=== PATIENT | female | born 1975 | race Two or more races ===

== ENCOUNTER 2022-12-09 15:16 | Inpatient (IN) | payer MEDICAID ==
[~2022-12-09] VITALS: Ht 170.2 cm; Wt 88.9 kg
[2022-12-09] MEDS ORDERED: LORazepam 2MG/ML-1ML VIAL IV ONE (15:30)
[2022-12-09] MEDS ORDERED: SODIUM CHLORIDE 0.9% 500 ML IV ONE (15:30)
[2022-12-09 15:54] LABS: Basophils # (auto) 0.1 10 ^3/uL (0-0.2); Basophils % (auto) 1.1 % (0.0-2.0); Eosinophils # (auto) 0.3 10 ^3/uL (0-0.8); Eosinophils % (auto) 5.6 % (0.0-7.0); Hematocrit 38.1 % (36.0-46.0); Hemoglobin 12.2 g/dL (12.2-16.2); Lymphocytes # (auto) 1.8 10 ^3/uL (0.4-5.4); Lymphocytes % (auto) 29.4 % (10.0-50.0); Mean Corpuscular Hemoglobin 27.2 pg (28.0-32.0); Mean Corpuscular Volume 84.9 fL (80.0-100.0); Monocytes # (auto) 0.4 10 ^3/uL (0-1.3); Monocytes % (auto) 7.2 % (0.0-12.0); Neutrophils # (auto) 3.5 10 ^3/uL (1.6-8.6); Neutrophils % (auto) 56.7 % (37.0-80.0); Nucleated Red Blood Cells % 0.1 %; Red Blood Cells 4.49 10^6/uL (4.0-5.20); Red Cell Distribution Width 13.8 % (11.8-14.3); White Blood Cell 6.1 10^3/uL (4.4-10.8)
[2022-12-09 16:12] LABS: Alanine Aminotransferase 16 U/L (7-40); Albumin 4.3 g/dL (3.2-4.8); Alkaline Phosphatase 120 U/L (46-116); Anion Gap 7 (5-15); Aspartate Aminotransferase 11 U/L (13-40); BUN/Creatinine Ratio 8.2 (10.0-20.0); Bilirubin, Total 0.5 mg/dL (0.2-1.0); Blood Urea Nitrogen 7 mg/dL (9-23); Calcium 9.4 mg/dL (8.7-10.4); Carbon Dioxide 25 mmol/L (20-30); Chloride 106 mmol/L (98-107); Glucose 95 mg/dL (74-106); Magnesium 1.5 mg/dL (1.6-2.6); Potassium 3.7 mmol/L (3.5-5.1); Sodium 138 mmol/L (136-145); Total Protein 8.3 g/dL (5.7-8.2)
[2022-12-09 16:54] LABS: Partial Thromboplastin Time 23.6 SEC (24.5-34.5); Prothrombin Time 10.5 sec (9.3-11.8)
[2022-12-09] MEDS ORDERED: IOHEXOL 350 MG/ML 100ML IJ ONE (18:53)
[2022-12-09] MEDS ORDERED: hydrALAZINE HCL 20 MG/ML VL IV ONE (19:00)
[2022-12-09] MEDS ORDERED: ONDANSETRON HCL 4 MG/2 ML VIAL IV ONE (20:00)
[2022-12-09] MEDS ORDERED: MORPHINE SULFATE 4 MG/ML SYR/VIAL IV ONE (20:00)
[2022-12-09 20:56] LABS: Urine Bacteria FEW /hpf (None Seen); Urine Blood Negative /uL (Negative); Urine Clarity Clear (Clear); Urine Color Colorless (Yellow); Urine Hyaline Cast FEW /lpf (0 - 2); Urine Protein, UAD Negative (Negative); Urine Specific Gravity 1.003 (1.001-1.035); Urine Urobilinogen Normal (Negative); Urine WBC 1 /hpf (0 - 5); Urine pH 6.5 (5.0-8.0)
[2022-12-09] MEDS ORDERED: MORPHINE SULFATE INJ 2 MG/ml SYRG IV PRN (21:30)
[2022-12-09] MEDS ORDERED: NITROGLYCERIN 0.4 MG SL TAB SL PRN (21:30)
[2022-12-09] MEDS ORDERED: ONDANSETRON HCL 4 MG/2 ML VIAL IV PRN (21:30)
[2022-12-09] MEDS: ATORVASTATIN 20 MG TAB PO SCH (22:03)
[2022-12-09] MEDS: ACETAMINOPHEN 325 MG TAB PO PRN (22:10)
[2022-12-10] MEDS: ACETAMINOPHEN 325 MG TAB PO PRN ×2 (06:10→14:20)
[2022-12-10 06:20] LABS: Basophils # (auto) 0 10 ^3/uL (0-0.2); Basophils % (auto) 0.8 % (0.0-2.0); Eosinophils # (auto) 0.3 10 ^3/uL (0-0.8); Eosinophils % (auto) 4.9 % (0.0-7.0); Hematocrit 36.7 % (36.0-46.0); Hemoglobin 11.8 g/dL (12.2-16.2); Lymphocytes # (auto) 1.5 10 ^3/uL (0.4-5.4); Lymphocytes % (auto) 25.7 % (10.0-50.0); Mean Corpuscular Hemoglobin 27.3 pg (28.0-32.0); Mean Corpuscular Hgb Conc. 32.3 g/dL (32.0-36.0); Mean Corpuscular Volume 84.7 fL (80.0-100.0); Monocytes # (auto) 0.5 10 ^3/uL (0-1.3); Monocytes % (auto) 9.4 % (0.0-12.0); Neutrophils # (auto) 3.4 10 ^3/uL (1.6-8.6); Neutrophils % (auto) 59.2 % (37.0-80.0); Nucleated Red Blood Cells % 0.1 %; Red Blood Cells 4.33 10^6/uL (4.0-5.20); Red Cell Distribution Width 13.8 % (11.8-14.3); White Blood Cell 5.7 10^3/uL (4.4-10.8)
[2022-12-10] MEDS ORDERED: SUMAtriptan SUCCINATE 25 MG TAB PO ONE (06:30)
[2022-12-10 06:32] LABS: Anion Gap 7 (5-15); Carbon Dioxide 26 mmol/L (20-30); Chloride 107 mmol/L (98-107); Potassium 4.1 mmol/L (3.5-5.1); Sodium 140 mmol/L (136-145)
[2022-12-10 06:33] LABS: Calcium 9.3 mg/dL (8.7-10.4)
[2022-12-10 06:38] LABS: Glucose 91 mg/dL (74-106)
[2022-12-10 06:39] LABS: BUN/Creatinine Ratio 10.7 (10.0-20.0); Blood Urea Nitrogen 9 mg/dL (9-23)
[2022-12-10] MEDS ORDERED: IOHEXOL 300 MG/ML 100ML BOTTLE IJ ONE (07:09)
[2022-12-10 07:39] VITALS: PULSE 84; RESP 20; O2SAT 95
[2022-12-10] MEDS: ASPirin 81 mg TAB PO SCH (09:10)
[2022-12-10] MEDS: PANTOPRAZOLE 40 MG TAB PO SCH (09:10)
[2022-12-10] MEDS: METOPROLOL SUCCINATE XL 50 MG TAB PO SCH (09:12)
[2022-12-10] MEDS: LISINOPRIL 20 MG TAB PO SCH (09:12)
[2022-12-10 13:25] VITALS: PULSE 84; RESP 18
[2022-12-10 15:55] LABS: Hepatitis B Surface Antigen Negative (Negative)
[2022-12-10 16:00] VITALS: BP 140/95; PULSE 77; RESP 20; TEMP 97.9; O2SAT 98
[2022-12-10 16:17] LABS: Hepatitis C Antibody Negative (Negative)
[2022-12-10 20:00] VITALS: PULSE 84; RESP 18
[2022-12-10] MEDS ORDERED: MELO7.5T7 PO (20:26)
[2022-12-10] MEDS ORDERED: BACL10TA PO (20:26)
[2022-12-10] MEDS ORDERED: METO25TA93 PO (20:26)
[2022-12-10] MEDS ORDERED: PERCOT PO (20:26)
[2022-12-10] MEDS: OXYCODONE W/ ACETAMINOPHEN 5/325MG TABLET PO PRN (20:47)
[2022-12-10] MEDS ORDERED: TEMAZEPAM 15 MG CAP PO ONE (21:45)
[2022-12-10 22:00] VITALS: BP 155/107; PULSE 65; RESP 15; TEMP 97.9
[2022-12-10] MEDS: ATORVASTATIN 20 MG TAB PO SCH (22:16)
[2022-12-11] MEDS: ACETAMINOPHEN 325 MG TAB PO PRN ×2 (02:13→09:02)
[2022-12-11 05:00] VITALS: BP 114/66; PULSE 79; RESP 16; TEMP 98.1; O2SAT 99
[2022-12-11] MEDS: OXYCODONE W/ ACETAMINOPHEN 5/325MG TABLET PO PRN ×3 (06:40→21:25)
[2022-12-11 08:00] VITALS: BP 122/87; PULSE 63; PULSE 72; RESP 16; TEMP 98.1; O2SAT 99
[2022-12-11 09:00] VITALS: BP 122/87; PULSE 72; RESP 16; TEMP 98.1; O2SAT 99
[2022-12-11] MEDS: PANTOPRAZOLE 40 MG TAB PO SCH (09:00)
[2022-12-11] MEDS: METOPROLOL SUCCINATE XL 50 MG TAB PO SCH (09:01)
[2022-12-11] MEDS: ASPirin 81 mg TAB PO SCH (09:01)
[2022-12-11] MEDS: LISINOPRIL 20 MG TAB PO SCH (09:01)
[2022-12-11] MEDS ORDERED: KETOROLAC TROMETH 30 MG/ML 1ML VIAL IV ONE (10:30)
[2022-12-11] MEDS: BACLOFEN 10 MG TAB PO PRN ×2 (11:23→21:25)
[2022-12-11 13:00] VITALS: BP 109/69; PULSE 70; RESP 16; TEMP 98.5; O2SAT 100
[2022-12-11] MEDS ORDERED: ASPITAB47 OR (16:10)
[2022-12-11 17:00] VITALS: BP 118/61; PULSE 69; RESP 17; TEMP 97.7; O2SAT 98
[2022-12-11] MEDS ORDERED: CAFFEINE 65 MG PO PRN (17:00)
[2022-12-11] MEDS ORDERED: ACETAMINOPHEN PO PRN (17:00)
[2022-12-11] MEDS ORDERED: ASPIRIN 250 MG PO PRN (17:00)
[2022-12-11 20:00] VITALS: PULSE 73; RESP 18
[2022-12-11] MEDS: ATORVASTATIN 20 MG TAB PO SCH (21:26)
[2022-12-11] MEDS ORDERED: TEMAZEPAM 15 MG CAP PO PRN (22:45)
[2022-12-12 08:00] VITALS: PULSE 64; RESP 16; O2SAT 99
[2022-12-12 09:00] VITALS: BP 148/100; PULSE 73; RESP 19; TEMP 97.6; O2SAT 90
[2022-12-12] MEDS: PANTOPRAZOLE 40 MG TAB PO SCH (09:12)
[2022-12-12] MEDS: TOPIRAMATE 25 MG TAB PO SCH ×2 (09:13→21:39)
[2022-12-12] MEDS: LISINOPRIL 20 MG TAB PO SCH (09:13)
[2022-12-12] MEDS: ASPirin 81 mg TAB PO SCH (09:13)
[2022-12-12] MEDS: METOPROLOL SUCCINATE XL 50 MG TAB PO SCH (09:14)
[2022-12-12] MEDS: MORPHINE SULFATE INJ 2 MG/ml SYRG IV PRN ×2 (09:24→19:02)
[2022-12-12] MEDS ORDERED: NIFEdipine ER 30 MG TAB PO ONE (10:15)
[2022-12-12] MEDS ORDERED: ADENOSINE 75 MG in GIVE UN-DILUTED 0 ML IV ONE (10:30)
[2022-12-12 13:00] VITALS: BP 154/95; PULSE 66; RESP 17; TEMP 98.5; O2SAT 91
[2022-12-12 17:00] VITALS: BP 146/93; PULSE 80; RESP 17; TEMP 99.3; O2SAT 100
[2022-12-12 20:00] VITALS: PULSE 84; RESP 16; O2SAT 99
[2022-12-12] MEDS: ATORVASTATIN 20 MG TAB PO SCH (21:39)
[2022-12-12 22:00] VITALS: BP 152/103; PULSE 83; RESP 18; TEMP 98.2; O2SAT 98
[2022-12-13] MEDS: FIORICET PO PRN ×2 (00:33→09:22)
[2022-12-13 00:40] VITALS: BP 133/91
[2022-12-13] MEDS: OXYCODONE W/ ACETAMINOPHEN 5/325MG TABLET PO PRN (04:35)
[2022-12-13 05:00] VITALS: BP 111/76; PULSE 80; RESP 18; TEMP 98.3; O2SAT 98
[2022-12-13 08:00] VITALS: PULSE 55; RESP 18; O2SAT 99
[2022-12-13 09:00] VITALS: BP 101/73; PULSE 66; RESP 18; TEMP 98.3; O2SAT 99
[2022-12-13] MEDS: PANTOPRAZOLE 40 MG TAB PO SCH (09:21)
[2022-12-13] MEDS: ASPirin 81 mg TAB PO SCH (09:21)
[2022-12-13] MEDS ORDERED: NIFEdipine ER 30 MG TAB PO SCH (10:00)
[2022-12-13] MEDS: METOPROLOL SUCCINATE XL 50 MG TAB PO SCH (10:00)
[2022-12-13] MEDS ORDERED: BUTAPT PO (10:06)
[2022-12-13] MEDS ORDERED: TOPI25TA84 PO (10:06)
[2022-12-13] MEDS: TOPIRAMATE 25 MG TAB PO SCH (10:35)
[2022-12-13 10:46] VITALS: BP 101/73; PULSE 66; RESP 19; TEMP 36.8; O2SAT 99
== END 2022-12-13 13:08 | disposition home or self-care (01) | DRG 199 ==
LOC: EDBD 15:16 → ER 15:16 → TELE 21:25 → TELE-CENTR 12-10 12:51
PROVIDERS: ADMIT Nurse Practitioner; ATTEND Internal Medicine
DX: I16.0 Hypertensive urgency (principal); M32.9 Systemic lupus erythematosus, unspecified; E66.9 Obesity, unspecified; R07.89 Other chest pain; I10 Essential (primary) hypertension; G43.109 Migraine with aura, not intractable, without status migrainosus; M06.9 Rheumatoid arthritis, unspecified; Z68.30 Body mass index [BMI] 30.0-30.9, adult; Z79.899 Other long term (current) drug therapy; Z82.49 Family history of ischemic heart disease and other diseases of the circulatory system; Z90.49 Acquired absence of other specified parts of digestive tract
CPT/HCPCS: 36415; 70450; 71045; 71260; 74177; 78452; 80048; 80053; 81001; 83735; 84484; 85025; 85379; 85610; 85730; 86803; 87081; 87340; 93005; 93017; 93306; 93970; 96361; 96374; 96375; 99291; G0378; J0153; J1885; J2405